=== PATIENT | female | born 1985 | race Caucasian/White ===

== ENCOUNTER 2025-09-14 14:10 | Outpatient (AMB) | payer MEDICAID, SELFPAY ==
--- NOTE | 2025-09-14 14:26 | A.PHYSOV_ITS ---
Vital Signs 09/14/25 14:33 Height 5 ft 5 in Weight 306 lb BMI 50.9 Intake Visit Reasons: NPV AVIS Ref- left sided sciatica Intake Note: Patient is a 40 year old female in office today as new patient for left sided sciatica. has tried physical therapy did not help the left pain in the hip and down the leg epidural with both 1 year ago and that made it worse ice and heat help a little HPI Comments Details: History of Present Illness The patient is a 40-year-old female presenting for evaluation of chronic low back pain, which has been ongoing for about two years. She experienced improvement with physical therapy and a 65-pound weight loss. Her symptoms significantly worsened during her most recent a year ago, particularly in the last two months, and the pain intensified after she gave . Although weight loss after delivery initially made the pain bearable, it has become severe in the past two to three months. Her pain is exacerbated by activities such as getting out of bed, rolling over, and grocery shopping, and she is unable to stand up straight. She completed physical therapy this past summer after her , attending two to three times a week for about two to three months. She is currently taking gabapentin 300 mg twice daily. She previously used meloxicam, which was initially effective but its benefit diminished. A course of prednisone a few weeks ago was very effective, but the pain returned and worsened after she stopped the medication. She denies any history of diabetes. I reviewed the referring provider's no prior to consultation. Pain Description - Onset: Approximately two years ago. - Location: Central low back. - Radiation: Pain shoots down her left leg, underneath the buttock, and down the side. - Severity: The patient rates her current pain as 7 out of 10. - Quality: Described as excruciating. - Exacerbating Factors: Getting out of bed, rolling over in bed, grocery shopping, standing, and walking. - Activities of Daily Living: She is unable to stand up straight and has difficulty walking. [facility] Surgical History (Updated 09/11/25 @ 16:18 by Cherelle Bhat MA) Cyst of ovary, left History of cholecystectomy Pilonidal cyst History of appendectomy Social History (Updated 09/11/25 @ 16:19 by Cherelle Bhat MA) Patient Tobacco Use Status: Former Tobacco user Current occupational status: employed Review of Systems Narrative Review of Systems - Musculoskeletal: Reports excruciating central low back pain. - Neurological: Reports pain radiating down the left buttock and leg. - Reports sensation feels different between her right and left legs. - Endocrine: Denies diabetes. Physical Exam Exam Exam: Physical Exam - Back: Tenderness to palpation over the central and central-left lumbar spine. - No tenderness over the right side of the back or sacroiliac joints. - Pain is elicited with lumbar extension. - Neurological: Sensation is unequal between the left and right legs. - Straightening the left leg produces tension. - Thigh lift elicits pain. She is otherwise neurovascularly intact. Vital Signs: BMI result Body Mass Index 50.9 Assessment & Plan Assessment & Plan (1) Lumbar radiculopathy: Code(s): M54.16 - Radiculopathy, lumbar region Category: Medical (2) Lumbar spondylosis: Code(s): M47.816 - Spondylosis without myelopathy or radiculopathy, lumbar region Category: Medical Plan Pain Management - Analgesia: Current pain is rated 7/10. - She is taking gabapentin 300 mg twice daily. - She has tried meloxicam, which is no longer effective, and a course of prednisone, which provided temporary but significant relief. - Activities of Daily Living: Pain interferes with daily activities such as getting out of bed, walking, standing straight, and grocery shopping. - Affect: Not discussed. - Adverse Effects: Not discussed. - Aberrant Drug Related Behaviors: Not discussed. Plan Patient was informed and verbally consented to the use of an ambient scribe for clinic note documentation during this visit. 1. Chronic Low Back Pain With Left-Sided Sciatica The patient's chronic low back pain with radicular symptoms into the left leg is likely secondary to the grade 1 retrolisthesis identified on her X-ray. As she has already completed conservative treatment with physical therapy, further diagnostic imaging is warranted. An MRI of the lumbar spine will be ordered to better evaluate the discs, bones, and identify the specific nerve impingement. Regarding medication management, she will be switched from meloxicam to diclofenac twice daily and will continue taking gabapentin. More targeted treatment options, such as injections, will be considered at her next visit after the MRI results are available. 2. Grade 1 Retrolisthesis Of Lumbar Spine The patient has a significant finding of a grade 1 retrolisthesis on her X-ray, which is contributing to her pain. This is a degenerative condition that may progress over time. While surgical intervention like a fusion is typically considered for higher grades (grade 2 or 3), the current plan is to avoid surgery and manage symptoms conservatively. The upcoming MRI will provide more detail on the stability and effects of this finding. Discussion Notes I discussed the patient's X-ray finding of a grade 1 retrolisthesis, explaining it as a degenerative condition causing her pain. I explained that this can progress and that higher grades may require surgery, but we will try to avoid that. Because she has completed conservative therapy, I recommended an MRI of the lumbar spine to get a more detailed view of the discs, bones, and the pinched nerve causing her leg pain. I informed her that based on the MRI results, we could discuss more specific treatments like injections. I clarified that any potential injection would be ordered at the next visit after we review her results, as it requires insurance approval and time for scheduling. In the meantime, I will prescribe diclofenac twice daily and she will continue her current dose of gabapentin. Patient Instructions - Continue taking your gabapentin as prescribed. - We will send a new prescription for diclofenac, an anti-inflammatory medication, to your pharmacy. - Please take it twice a day. - We are ordering an MRI of your lower back (lumbar spine). - Please schedule a follow-up appointment after you have completed the MRI so we can review the results and discuss the next steps in your treatment, which may include injections. Orders: Orders MR lumbar spine wo con Today M51.16 - Intervertebral disc disorders with radiculopathy, lumbar region Medications: New diclofenac potassium 50 mg PO BID 60 tabs 3RF 30 days M47.816 - Spondylosis without myelopathy or radiculopathy, lumbar region, M54.16 - Radiculopathy, lumbar region Coding Level of Care Code Tele New Pt Level 4 (94157) Diagnoses Lumbar radiculopathy M54.16 Lumbar spondylosis M47.816
[2025-09-14 14:33] VITALS: BMI 50.9
== END 2025-09-14 15:01 | disposition home or self-care (01) ==
LOC: HO.HPHYS 14:10
PROVIDERS: PCP Physician Assistant; Visit Provider Physician Assistant
DX: M54.16 Radiculopathy, lumbar region (principal); M47.816 Spondylosis without myelopathy or radiculopathy, lumbar region
CPT/HCPCS: 99204

== ENCOUNTER → 2025-09-14 14:10 | Outpatient (BNVA) | payer MEDICAID, SELFPAY | PROVIDERS: PCP Physician Assistant; Visit Provider Physician Assistant | DX: M47.16 Other spondylosis with myelopathy, lumbar region (principal); M54.42 Lumbago with sciatica, left side; M43.16 Spondylolisthesis, lumbar region; G89.29 Other chronic pain; Z79.899 Other long term (current) drug therapy | CPT/HCPCS: 99202 ==